=== PATIENT | female | born 1965 | race Caucasian/White ===

== ENCOUNTER 2018-11-03 00:59 | Outpatient (CLI) | payer OTHER, MEDICARE, SELFPAY ==
--- NOTE | 2018-11-03 15:50 | DI.MAMMO_ITS ---
SYMPTOM/DIAGNOSIS: SCREENING Z12.39 BILATERAL SCREENING MAMMOGRAPHY: Mammograms were interpreted according to the usual protocol including computer analysis with CAD system, tomosynthesis and C view imaging. Comparison is made with 2012 and 2015. The breasts are composed of heterogeneously dense fibroglandular tissue, breast density category C. There has been interval decrease in size of the previously noted circumscribed nodules in both breasts. A biopsy marker clip is seen in the inferior right breast. No suspicious masses or suspicious microcalcifications are seen. IMPRESSION: Category 2, negative mammogram with benign findings. Yearly screening mammography is recommended. Breast density category C. MQSA ASSESSMENT OF FINDINGS: Negative with benign findings. Category 2. Patient will receive a letter notifying them of these results. Bi-RADS category C. The breasts are heterogeneously dense, which may obscure small masses.
== END 2018-11-03 01:19 ==
PROVIDERS: PCP Nurse Practitioner Primary Care; Visit Provider Nurse Practitioner Primary Care
DX: Z12.31 Encounter for screening mammogram for malignant neoplasm of breast (principal)
CPT/HCPCS: 77063; 77067

== ENCOUNTER 2021-04-17 03:09 | Emergency (ER) | payer MEDICARE, OTHER, SELFPAY ==
[2021-04-17 03:14] VITALS: BP 130/75; PULSE 75; RESP 18; TEMP 36.5; O2SAT 96
--- NOTE | 2021-04-17 03:15 | DI.RAD_ITS ---
Exam(s) XR WRIST RT COMPLETE EXAM: XR WRIST RT COMPLETE CLINICAL HISTORY: fall, pain in distal ulna and wrist, and 4/5th mcp. TECHNIQUE: 2D digital imaging was performed. COMPARISON: No exams were available for comparison FINDINGS: No evidence of fracture or dislocation nor significant ulnar variance. On the lateral view there is a bony excrescence seen dorsally but does not appear separate from paren t bone to suggest an obvious triquetrum fracture. Correlation with site of tenderness is recommended . IMPRESSION: DATA REPOSITORY: RADIATION DOSE DELIVERED:
--- NOTE | 2021-04-17 03:15 | DI.RAD_ITS ---
Exam(s) XR ANKLE LT COMPLETE EXAM: XR ANKLE LT COMPLETE CLINICAL HISTORY: fall, tenderness over medial ankle/dist. tibia. TECHNIQUE: 2D digital imaging was performed. COMPARISON: No exams were available for comparison FINDINGS: There is no evidence of acute fracture nor widening of the mortise. Talar dome unremarkable. No osseous tarsal coalition IMPRESSION: No fracture evident DATA REPOSITORY: RADIATION DOSE DELIVERED:
--- NOTE | 2021-04-17 03:15 | DI.RAD_ITS ---
Exam(s) XR ELBOW RT COMPLETE EXAM: XR ELBOW RT COMPLETE CLINICAL HISTORY: fall, pain in lateral elbow and olecranon. TECHNIQUE: 2D digital imaging was performed. COMPARISON: No exams were available for comparison FINDINGS: No evidence of fracture nor joint effusion. No swelling of the olecranon bursa. Radial head unremar kable. IMPRESSION: No fracture. DATA REPOSITORY: RADIATION DOSE DELIVERED:
[2021-04-17] MEDS: Acetaminophen 500 MG TAB 1000 MG PO (03:25)
[2021-04-17] MEDS: Ibuprofen 800 MG TAB PO (03:25)
--- NOTE | 2021-04-17 03:30 | W.ED.GENAD ---
Discharge Plan Disposition Patient Disposition: HOME Condition: Good Discharge Details Clinical Impression: Fall, Right wrist sprain, Left ankle sprain Primary Care Provider: Eulalia Beckwith ED Provider: Saúl Kendall Home Meds and New Rx's Prescriptions: Continued multivitamin [Daily Vitamin] 1 EACH tablet 1 ea PO DAILY 0RF (DME) nebulizer and compressor [Comp-Air Elite Comp Neb System] 1 EACH device 1 ea Miscellaneous DAILY Qty: 1 0RF Rx Instructions: PLEASE DISPENSE NEBULIZER MACHINE WITH ASSOCIATED COMPONENTS. BRAND OF MACHINE IS NOT IMPORTANT. pantoprazole [Protonix] 40 MG tablet,delayed release (DR/EC) 40 mg PO DAILY Qty: 90 1RF Rx Instructions: DX: HEARTBURN levalbuterol tartrate [Xopenex HFA] 15 GM HFA aerosol inhaler 2 inhaler Inhalation Q4H PRN Qty: 1 3RF Rx Instructions: DX: BRONCHOSPASM calcium phos,dibas-vitamin D3 77-400 mg-unit Tablet 2 tab PO DAILY 0RF calcium phos,dibas-vitamin D3 77-400 mg-unit Tablet 2 tab PO QHS 0RF atorvastatin [Lipitor] 20 MG tablet 20 mg PO DAILY 0RF venlafaxine 75 MG tablet 20 mg PO DAILY 0RF cyanocobalamin (vitamin B-12) 1,000 MCG tablet 1,000 mcg PO DAILY 0RF gabapentin 100 MG capsule 400 mg PO DAILY 0RF diazepam [Valium] 5 MG tablet 5 mg PO Q8H PRN PRNQty: 14 0RF Discharge Instructions Instructions: Ankle Sprain (ED), Wrist Sprain (ED) Additional Instructions: At this time the radiologist sees no evidence of fracture for your wrist ankle or elbow. I suspect you have notably sprained these. Please use the splint and boot to help with the pain. Please ice the areas frequently. You can take Tylenol and Motrin as needed for pain. Maximum dose and frequency of Tylenol is 1000 mg every 6 hours and maximum dose and frequency for Motrin is 800 mg every 6 hours. Please bear in mind that these can cause notable stomach irritation and bleed, so take them on a full stomach, and do not take the maximum dose for more than 2 or 3 days. If you have persistent pain in spite of the splinting and Tylenol and Motrin after 1 to 2 weeks you may require repeat imaging for reassessment. If you notice any worsening of your symptoms, or any new symptoms such as vomiting, diarrhea, fever, chills, shortness of breath, chest pain, numbness, weakness, or fainting , please return immediately to the emergency department for reevaluation. Please follow up with your primary care provider as soon as possible for reassessment and reevaluation. As always, it was a pleasure participating in your medical care today. Referrals: Eulalia Beckwith [Primary Care Provider] - Medical Decision Making This is a 56-year-old female with a past medical history of high cholesterol, GERD, previous lung cancer with subsequent chemotherapy, previous lobectomy, who presents today for evaluation of fall and joint pain. Patient states that at 8:30 PM which was 7 hours prior to arrival, she was out at the barn when she slipped while carrying a bucket. Her right upper extremity landed on the pocket and developed a notable hematoma over the elbow and some pain in the right wrist. She also has some mild pain in her left ankle. She went home, and tried to go to sleep, but throughout the night the pain notably worsened, escalating to the point where she is no longer able to bear weight on her left ankle without moderate pain, and she has continued worsening pain in her right wrist and right elbow. Pain is made worse with movement. She has not taken any Tylenol or Motrin. She denies any new numbness tingling or weakness otherwise. She did not strike her head. She denies any pain in any other component of her body after the fall. No other complaints at this time. No other modifying factors. Exam demonstrates tenderness over the distal ulna of the right upper extremity as well as tenderness over the olecranon/elbow. Also notable tenderness over the medial aspect of the left ankle. We will get radiographs, evaluate for fracture, give Tylenol Motrin, monitor closely and reassess. 5 AM X-ray results have returned, no evidence of acute fracture or abnormality per radiology. On reassessment patient is feeling better after Tylenol and Motrin. I do feel she has notably sprained the wrist and ankle. We will give the walking boot and universal wrist splint. Recommend Tylenol and Motrin on an outpatient basis for pain and inflammation control as well as regular icing. Discussed red flags for which to return. Patient stable for discharge. I have extensively reviewed the treatment plan and discharge instructions with the patient. I have addressed all patient concerns at this time. The patient was made aware of what symptoms to monitor for that would warrant a return to the emergency department. Discussed the plan with the patient, they demonstrate verbal understanding and agreement with our assessment and plan at this time. The documentation in this chart was dictated using [employer] dictation software. Please excuse any dictation errors. FINDINGS: Bones/joints: No evidence of acute fracture. Soft tissues: Mild soft tissue swelling. IMPRESSION: No evidence of acute fracture. Thank you for allowing us to participate in the care of your patient. Dictated and Authenticated by: Shasta Padilla MD 04/17/2021 4:28 AM Eastern Time ([place] & [place]) FINDINGS: Bones/joints: Normal. Soft tissues: Normal. IMPRESSION: No acute findings. Thank you for allowing us to participate in the care of your patient. Dictated and Authenticated by: Shasta Padilla MD 04/17/2021 4:29 AM Eastern Time ([place] & [place]) COMPARISON: CR XR WRIST RT COMPLETE 04/17/2021 3:57 AM FINDINGS: Bones/joints: No evidence of acute fracture. Soft tissues: Mild soft tissue swelling. IMPRESSION: No evidence of acute fracture. Thank you for allowing us to participate in the care of your patient. Dictated and Authenticated by: Shasta Padilla MD 04/17/2021 4:29 AM Eastern Time ([place] & [place]) HPI General Date/Time Provider Initiated Documentation: 04/17/21 03:13. HPI Narrative: This is a 56-year-old female with a past medical history of high cholesterol, GERD, previous lung cancer with subsequent chemotherapy, previous lobectomy, who presents today for evaluation of fall and joint pain. Patient states that at 8:30 PM which was 7 hours prior to arrival, she was out at the barn when she slipped while carrying a bucket. Her right upper extremity landed on the pocket and developed a notable hematoma over the elbow and some pain in the right wrist. She also has some mild pain in her left ankle. She went home, and tried to go to sleep, but throughout the night the pain notably worsened, escalating to the point where she is no longer able to bear weight on her left ankle without moderate pain, and she has continued worsening pain in her right wrist and right elbow. Pain is made worse with movement. She has not taken any Tylenol or Motrin. She denies any new numbness tingling or weakness otherwise. She did not strike her head. She denies any pain in any other component of her body after the fall. No other complaints at this time. No other modifying factors. Related Data Home Medications Medication Instructions Recorded Confirmed multivitamin (Daily Vitamin) 1 ea PO DAILY 05/03/12 04/17/21 nebulizer and compressor (Comp-Air #1 ea 05/03/12 Elite Comp Neb System) pantoprazole 40 mg tablet,delayed 40 mg PO DAILY #90 tab 12/05/12 04/17/21 release (Protonix) levalbuterol tartrate 45 2 inhaler INHALATION Q4H PRN #1 04/06/13 mcg/actuation aerosol inhaler inhaler (Xopenex HFA) atorvastatin 20 mg tablet (Lipitor) 20 mg PO DAILY 01/29/17 04/17/21 cyanocobalamin (vitamin B-12) 1,000 mcg PO DAILY 01/29/17 02/27/17 1,000 mcg tablet gabapentin 100 mg capsule 400 mg PO DAILY 01/29/17 04/17/21 venlafaxine 75 mg tablet 20 mg PO DAILY 01/29/17 04/17/21 diazepam 5 mg tablet (Valium) 5 mg PO Q8H PRN PRN #14 tab 02/27/17 calcium phosphate,dibasic 77 2 tab PO DAILY 04/17/21 04/17/21 mg-vitamin D3 400 unit tablet calcium phosphate,dibasic 77 2 tab PO QHS 04/17/21 04/17/21 mg-vitamin D3 400 unit tablet Previous Rx's Medication Instructions Recorded diazepam 5 mg tablet (Valium) 5 mg PO Q8H PRN PRN #14 tab 02/27/17 Allergies Allergy/AdvReac Type Severity Reaction Status Date / Time aspirin Allergy Severe breathing Verified 04/17/21 03:22 difficulty zolpidem tartrate Allergy Intermediate Itchy rash Verified 04/17/21 03:22 [From Drew] & Terrible night-hunt shellfish derived Allergy SOB Verified 04/17/21 03:22 General Stated Complaint: Orthopedic ANTHONY: 4 Review of Systems All systems reviewed & are unremarkable except as noted in HPI and below PFSH All Active Problems (Updated 04/17/21 @ 04:59 by Saúl Kendall DO) Fall (Acute) Right wrist sprain (Acute) Left ankle sprain (Acute) Social History Smoking/Tobacco Use Status: Former Tobacco Use Smoking risk assessment performed?: Yes Alcohol Intake: never Drug use: Never Substance use type: does not use Do you feel safe at home: Yes Do you feel safe in your relationship?: Yes Exam Narrative Exam Narrative: 1.Const: Well-nourished, Well-developed, appearing stated age 2.Eyes: PERRL, no conjunctival injection, and symmetrical lids. 3.ENT: Atraumatic external nose and ears. Moist MM. Neck: Symmetric, trachea midline, No thyromegaly. 4.CVS: +S1/S2, No murmurs or gallops. Peripheral pulses 2+ and equal in all extremities. Brisk capillary refill in all extremities. 5.RESP: Unlabored respiratory effort. Clear to auscultation bilaterally. No wheezes rales or rhonchi 6.GI: Soft, Nontender/Nondistended, No hepatosplenomegaly. No guarding or rebound. 7.MSK: Left upper extremity unremarkable, Right upper extremity demonstrates small hematoma over the proximal forearm and elbow. Tenderness over the olecranon and proximal ulna. Patient also demonstrates tenderness over the distal ulna and fourth and fifth metacarpals/the medial carpals. No snuffbox tenderness. No distal radius tenderness. Patient demonstrates reduced angiography technologist strength secondary to pain in the right hand. Patient does demonstrate good flexion, extension, abduction and adduction of the thumb, including good opposition strength of the thumb. Screws capillary refill is present in all fingers. Good sensation in all fingers. Right lower extremity is unremarkable nontender. Left lower extremity demonstrates no tenderness over the knee or tibial plateau. No tenderness over the distal fibula. Mild to moderate tenderness over the distal tibia and medial ankle. No significant bony tenderness over the arch of the foot or toes. Brisk capillary refill is present. Good sensation in the toes. Patient is able to flex and extend the toes without pain, however she does have notable pain with flexion and extension and inversion of the right ankle. 8.Skin: Warm, Dry. No rashes or lesions. 9.Neuro: pre press operator II-XII grossly intact. Sensation grossly intact, no focal neurologic deficits. 10.Psych: (AAO) x3. Appropriate mood and affect Course Vital Signs Vital signs: Vital Signs Temperature 36.5 C 04/17/21 03:14 Pulse 75 04/17/21 03:14 Respiratory Rate 18 04/17/21 03:14 Blood Pressure 130/75 04/17/21 03:14 Pulse Oximetry 96 04/17/21 03:14 Temperature 36.5 C 04/17/21 03:14 Temperature Source Temporal Artery Scan 04/17/21 03:14 Pulse 75 04/17/21 03:14 Respiratory Rate 18 04/17/21 03:14 Respiratory Effort Non-Labored 04/17/21 03:28 Blood Pressure 130/75 04/17/21 03:14 Blood Pressure Position Sitting 04/17/21 03:14 Pulse Oximetry 96 04/17/21 03:14 Oxygen Delivery Method Room Air 04/17/21 03:14 Oxygen Flow Rate 0 04/17/21 03:14
--- NOTE | 2021-04-17 04:29 | DI.VRAD_ITS ---
PROCEDURE INFORMATION: Exam: XR Left Ankle Exam date and time: 04/17/2021 3:27 AM Age: 56 years old Clinical indication: Other: Fall TECHNIQUE: Imaging protocol: XR Left ankle. Views: 3 or more views. COMPARISON: No relevant prior studies available. FINDINGS: Bones/joints: Normal. Soft tissues: Normal. IMPRESSION: No acute findings. Dictated and Authenticated by: Shasta Padilla MD. Ordering:EULOGIO Hays MD
--- NOTE | 2021-04-17 04:29 | DI.VRAD_ITS ---
PROCEDURE INFORMATION: Exam: XR Right Wrist Exam date and time: 04/17/2021 3:27 AM Age: 56 years old Clinical indication: Other: Fall, pain in distal ulna and wrist, 4th and 5th mcp TECHNIQUE: Imaging protocol: XR Right wrist. Views: 3 or more views. COMPARISON: No relevant prior studies available. FINDINGS: Bones/joints: No evidence of acute fracture. Soft tissues: Mild soft tissue swelling. IMPRESSION: No evidence of acute fracture. Dictated and Authenticated by: Shasta Padilla MD. Ordering:EULOGIO Hays MD
--- NOTE | 2021-04-17 04:30 | DI.VRAD_ITS ---
PROCEDURE INFORMATION: Exam: XR Right Elbow Exam date and time: 04/17/2021 3:27 AM Age: 56 years old Clinical indication: Other: Fall TECHNIQUE: Imaging protocol: XR Right elbow. Views: 3 or more views. COMPARISON: CR XR WRIST RT COMPLETE 04/17/2021 3:57 AM FINDINGS: Bones/joints: No evidence of acute fracture. Soft tissues: Mild soft tissue swelling. IMPRESSION: No evidence of acute fracture. Dictated and Authenticated by: Shasta Padilla MD. Ordering:EULOGIO Hays MD
--- NOTE | 2021-04-27 13:51 | NUR.NOTE ---
Nursing Note: Accessed pt chart for records to send to [facility]. Grace Rosales
== END 2021-04-17 05:27 | disposition home or self-care (01) ==
PROVIDERS: Emergency Provider Student in an Organized Health Care Education/Training Program; PCP Nurse Practitioner Primary Care
DX: S63.591A Other specified sprain of right wrist, initial encounter (principal); S93.492A Sprain of other ligament of left ankle, initial encounter; W01.0XXA Fall on same level from slipping, tripping and stumbling without subsequent striking against object, initial encounter
CPT/HCPCS: 29125; 29515; 99283; 73080; 73110; 73610

== ENCOUNTER 2022-05-14 03:28 | Outpatient (CLI) | payer MEDICARE, OTHER, SELFPAY ==
--- NOTE | 2022-05-14 | DI.MAMMO_ITS ---
Exam(s) MAMMO SCREENING EXAM: MAMMO SCREENING CLINICAL HISTORY: SCREENING, Z12.39,[id number] TECHNIQUE: Bilateral full field digital CC and MLO mammographic images were obtained with 3D tomosyn thesis and utilizing computer aided detection (CAD). COMPARISON: Available for comparison. FINDINGS: Masses/Architectural Distortion: There are bilateral breast nodules again seen. Some of which have s hown a decrease in size. No new breast nodules are seen. No areas of architectural distortion are p resent. Microcalcifications: No suspicious pleomorphic-type are seen. Skin Thickening/Nipple Retraction: None. IMPRESSION: 1. No significant interval change with no specific features of malignancy noted. 2. Unless there is more urgent need, screening mammography is recommended, as per [place] [employer] guidelines. BI-RADS Category 2 - Benign Findings Breast Density - Category B - Scattered areas of fibroglandular density Breast density category C or D implies that the patient has dense breast tissue. Dense breast tissue is very common and is not abnormal but dense breast tissue can make it harder to find cancer on a ma mmogram. Also, dense breast tissue may increase their breast cancer risk. This information about the result of the mammogram report was provided to the patient to raise their awareness. Use this report when you speak with the patient about their risks for breast cancer, which includes their family hist ory. At that time, you may recommend for more screening tests (Ultrasound or MRI) as they might be us eful based on their risk. A negative radiographic report should not delay biopsy if a dominant or clinically suspicious mass is present. Up to ten percent of cancers are not identified on mammography. A negative report may reinforce clinical impression. Adenosis and dense breasts may obscure an underlying neoplasm. False positive reports average 6 to 10%. Patient will receive a letter notifying them of these results.
== END 2022-05-14 03:48 ==
PROVIDERS: PCP Nurse Practitioner Primary Care; Visit Provider Physician Assistant
DX: Z12.31 Encounter for screening mammogram for malignant neoplasm of breast (principal)
CPT/HCPCS: 77063; 77067

== ENCOUNTER 2022-11-04 06:04 | Day surgery (SDC) | payer MEDICARE, OTHER, SELFPAY ==
[2022-11-04 06:19] VITALS: BP 125/89; PULSE 68; RESP 19; TEMP 36.7; O2SAT 96
--- NOTE | 2022-11-04 06:28 | W.ANESPRE ---
General Info Date of Service Date Performed: 11/04/22 Height: 5 ft 7.5 in Weight: 86.7 kg Body Mass Index (BMI): 29.5 Surgical Procedure: Operation Date: 11/04/22 07:35 Proposed Procedure Side Surgeon p Gastroscopy Nathalia Vasquez MD Meds Allergies and Home Medications Allergies Allergy/AdvReac Type Severity Reaction Status Date / Time aspirin Allergy Severe breathing Verified 11/04/22 06:30 difficulty zolpidem tartrate Allergy Intermediate Itchy rash Verified 11/04/22 06:30 [From Drew] & Terrible night-hunt alendronate sodium Allergy Unknown Verified 11/04/22 06:30 shellfish derived Allergy SOB Verified 11/04/22 06:30 Home Medication Medication Instructions Recorded multivitamin (Daily Vitamin tablet) 1 ea PO DAILY 05/03/12 nebulizer and compressor (Comp-Air #1 ea 05/03/12 Elite Comp Neb System device) pantoprazole 40 mg tablet,delayed 40 mg PO DAILY #90 tabs 12/05/12 release (Protonix) levalbuterol tartrate 45 2 inhaler inhalation Q4H PRN ##1 04/06/13 mcg/actuation aerosol inhaler (Xopenex HFA) cyanocobalamin (vitamin B-12) 1,000 mcg PO DAILY 01/29/17 1,000 mcg tablet gabapentin 100 mg capsule 400 mg PO DAILY 01/29/17 venlafaxine 75 mg tablet 20 mg PO DAILY 01/29/17 calcium phosphate,dibasic 77 2 tab PO DAILY 04/17/21 mg-vitamin D3 400 unit tablet acetaminophen 325 mg capsule 650 mg PO ONCE PRN 10/14/22 atorvastatin 40 mg tablet 40 mg PO DAILY 10/14/22 clotrimazole 1 % vaginal cream 1 appful vaginal QHS 10/14/22 cyclobenzaprine 5 mg tablet 5 mg PO BID PRN 10/14/22 escitalopram oxalate 10 mg tablet 30 mg PO DAILY 10/14/22 eszopiclone 2 mg tablet 2 mg PO QHS 10/14/22 famotidine 20 mg tablet 20 mg PO BID 10/14/22 lidocaine 5 % topical patch 3 patch topical DAILY 10/14/22 oxycodone-acetaminophen 5 mg-325 1 tab PO Q4H PRN 10/14/22 mg tablet Current Visit Medications: Current Medications Generic Name Dose Route Start Last Admin Trade Name Freq PRN Reason Stop Dose Admin Ringer's Solution 1,000 mls @ 80 mls/hr 11/04/22 06:00 IV 12/03/22 23:59 INFUSION ANTONINA IV Miscellaneous Supplies 1 each 11/04/22 06:00 Iv Access IV 12/03/22 23:59 DIRECTED ANTONINA Sodium Chloride 0 ml 11/04/22 06:00 Normal Saline Flush 10 Ml Syr IV 12/03/22 23:59 PRN PRN Sodium Chloride 0 ml 11/04/22 06:00 Normal Saline 10 Ml Vial IJ 12/03/22 23:59 DIRECTED PRN Sterile Water 0 ml 11/04/22 06:00 Water,Injection,Sterile 10 Ml Vial IJ 12/03/22 23:59 DIRECTED PRN PFSH Active Problems Active Problems: Problem Status Onset Code GERD (gastroesophageal reflux disease) K21.9 PTSD (post-traumatic stress disorder) F43.10 Hearing loss 04/06/13 H91.90 Amenorrhea N91.2 Asthma J45.909 COPD (chronic obstructive pulmonary disease) J44.9 Medical History Medical History Chronic pain (11/01/12) Chronic neuropathy Depressive disorder (01/02/13) Probable PTSD post-war Headache, migraine Heartburn (11/01/12) Hyperlipidemia Insomnia (11/01/12) Chronic Lunesta RX Lumbosacral pain Non-small cell lung cancer Traumatic brain injury Surgical History Surgical History H/O esophagogastroduodenoscopy (~11/2016) No Bx done S/P bronchoscopy with biopsy (~04/2010) S/P lobectomy of lung 2011 Status post pneumonectomy (~05/2010) 2 surgeries Tobacco Smoking/Tobacco Use Status: Former Tobacco Use Alcohol Alcohol Intake: current Alcohol intake frequency: holidays/special occasions only Substance Use Substance use: Never Substance use type: does not use Vital Signs and Lab Results Vital Signs Most Recent Vital Signs in EMR: Most Recent Vital Signs Temp Pulse Resp BP Pulse Ox 36.7 C 68 19 125/89 96 11/04/22 06:19 11/04/22 06:19 11/04/22 06:19 11/04/22 06:19 11/04/22 06:19 Lab Results Blood Type / Crossmatch: No Data to Display Complete Blood Count: No Data to Display Complete Metabolic Panel: No Data to Display Liver Function Panel: No Data to Display Coagulation Panel: No Data to Display Cardiac Panel: No Data to Display Arterial Blood Gas: No Data to Display Venous Blood Gas: No Data to Display Pancreas Panel: No Data to Display Thyroid Panel: No Data to Display Infectious Disease: No Data to Display Blood Cultures: No Data to Display Toxicology Panel: No Data to Display Anesthesia Assessment and Plan Anesthesia History Personal History: No History of Anesthesia Complications Family History: No Family History of Anesthesia Complications Exercise Tolerance Exercise Tolerance: Metabolic Equivalents>4 Pertinent Negatives Pertinent Negatives: No Major Cardiovascular Symptoms or Complaints and No History of CVA/TIA Cardiac & Pulmonary Exam Cardiac Exam: Normal S1/S2 Heart Sounds Pulmonary Exam: Clear Bilateral Breath Sounds Cardiac and Pulmonary Comment:: RULobectomy per patient Implantable Cardiac Device Does patient have a Pacemaker or an ICD?: No Airway Exam Known Difficult Airway: No Mallampati Class: 3 Mouth Opening: Narrow (< 3cm) Thyromental Distance: Greater than 3 cm Neck Range of Motion: Limited ROM Neck Circumference: Normal Teeth Condition: Normal Dentition ASA Classification ASA Score: ASA 3 Emergency Case?: No NPO Status NPO Status: NPO Clears >2 hours, Solids >8 hours Anesthesia Plan Resuscitation Status: Full Code Anesthesia Technique: General Anesthesia Airway Planned: Natural Airway Monitors Used: Standard Monitors
[2022-11-04 06:29] VITALS: BMI 29.5
--- NOTE | 2022-11-04 06:49 | ENDO_ITS ---
Date of service: 11/04/22 Time of Service: 07:42 Endoscopy Report DATE OF PROCEDURE: 11/04/22 PRE-OP DIAGNOSIS: reflux POST-OP DIAGNOSIS: same (mild gastritis and esophagitis) PROCEDURE: EGD with biopsies SURGEON: Nathalia Vasquez ANESTHESIA TYPE: General:No Airway COMPLICATIONS: None DISPOSITION: same day INDICATIONS: Ms. Martin is a pleasant 57-year-old female who comes in with a years worth of worsening reflux and heartburn symptoms.? Currently she is on pantoprazole 40 mg twice a day and famotidine 20 mg twice a day.? This is for the most part controlling her symptoms.? She can still sometimes wake up in the morning with acid taste in the back of her throat.? Sometimes she feels a lot of burning in her epigastric area as well as is in the chest.? She did have an upper endoscopy back in 2017 which was normal.? No biopsies were done at that time.? I discussed the pathophysiology of reflux with the patient as well as the upper endoscopy.? We reviewed the procedure in detail as well as the possible complications.? After our discussion the patient had a good understanding of the procedure and its possible complications.? Risks, benefits and complications have been reviewed. Complications include but are not limited to bleeding, pain, perforation, sore throat, aspiration, and adverse reaction to the medications.? Questions were entertained and answered to their satisfaction and they wished to proceed. No guarantees were given or implied. FINDINGS: Mild inflammation of the stomach and distal esophagus NO Hiatal Hernia or ulcers PROCEDURE DESCRIPTION: After informed consent was obtained the patient was take to the procedure room and placed in a supine position. Monitors were applied and a time out was done. The patients name, date of , procedure type, allergies to medications and metal in their body was reviewed. A bite block was placed and the patient was sedated. Once sedated and comfortable the gastroscope was advanced through the oropharynx which was grossly normal into the esophagus. The proximal and mid- esophagus were normal. In the distal esophagus there was mild inflammation noted. The scope was advanced into the stomach and through the pylorus into the 3rd portion of the duodenum. The duodenum was noted to be normal. The scope was retracted back into the stomach and biopsies were done to rule out H. pylori. There was mild inflammation. There were no ulcers. The scope was retroflexed. The cardia and fundus were noted to be normal. There was no hiatal hernia noted. The scope was retracted back into the esophagus and biopsies were done of the GE junction to rule out Sun's. The Z line was regular. The GE junction was at 38 cm. The scope was removed and the patient was woken up and taken back to [facility] in stable condition. Follow up: 2-3 weeks. I will order an US of her Gallbladder. Findings oon her EGD do not correlate with the severity of her symptoms. No medications changes at this time.
--- NOTE | 2022-11-04 06:52 | PGE_ITS ---
Date of Service Date of service: 11/04/22 Time of Service: 07:21 Assessment and Plan Assessment and plan (1) GERD (gastroesophageal reflux disease): Status: Chronic Assessment and plan: Ms. Martin is a pleasant 57-year-old female who comes in with a years worth of worsening reflux and heartburn symptoms.? Currently she is on pantoprazole 40 mg twice a day and famotidine 20 mg twice a day.? This is for the most part controlling her symptoms.? She can still sometimes wake up in the morning with acid taste in the back of her throat.? Sometimes she feels a lot of burning in her epigastric area as well as is in the chest.? She did have an upper endoscopy back in 2017 which was normal.? No biopsies were done at that time.? I discussed the pathophysiology of reflux with the patient as well as the upper endoscopy.? We reviewed the procedure in detail as well as the possible complications.? After our discussion the patient had a good understanding of the procedure and its possible complications.? Risks, benefits and complications have been reviewed. Complications include but are not limited to bleeding, pain, perforation, sore throat, aspiration, and adverse reaction to the medications.? Questions were entertained and answered to their satisfaction and they wished to proceed. No guarantees were given or implied. I did discuss balloon dilatation today in case that she has some narrowing. We reviewed the possible complications after baloon dilatatioin as well as the fact that most patients will need another dilatation 2-3 months after the first one. proceed with EGD with biopsies Subjective Subjective Interval history since last seen: I am seeing in in same-day surgery today. I saw her in the office because of worsening heartburn and GERD type symptoms. She has not had any new symptoms since I saw her in the office. She tells me that she had a pretty bad day yesterday with reflux. She continues on her PPI and H2 luz without much improvement in her symptoms. She has symptoms with foods as well as liquids. She has not been able to figure out any particular food that makes things worse. We went over the procedure again as well as the risks and benefits and complications. She does not have any more questions today and wishes to proceed . Exam Const General: comfortable and no acute distress Nutritional Appearance: overweight Orientation: alert and oriented x3 [facility] Head: normocephalic and atraumatic Resp Effort & Inspection: normal respiratory effort Auscultation: clear to auscultation bilaterally Cardio Rate: regular rate Rhythm: regular rhythm Objective Last Vital Signs Temp 98.1 F 11/04/22 06:19 Pulse 68 11/04/22 06:19 Resp 19 11/04/22 06:19 BP 125/89 11/04/22 06:19 Pulse Ox 96 11/04/22 06:19 Time Spent with Patient Time Spent with Patient: <25 minutes Time was spent: counseling the patient
--- NOTE | 2022-11-04 06:54 | W.PM.DSUDISC ---
Date of service: 11/04/22 Time of Service: 08:10 Discharge Plan Disposition Patient Disposition: Home Condition: Stable Discharge Details Reason For Visit: GERD Attending Provider: Nathalia Vasquez Primary Care Provider: Savanah Harrison Home Meds and New Rx's Prescriptions: Continued multivitamin [Daily Vitamin] 1 EACH tablet 1 ea PO DAILY (DME) nebulizer and compressor [Comp-Air Elite Comp Neb System] 1 EACH device 1 ea Miscellaneous DAILY Qty: 1 Rx Instructions: PLEASE DISPENSE NEBULIZER MACHINE WITH ASSOCIATED COMPONENTS. BRAND OF MACHINE IS NOT IMPORTANT. pantoprazole [Protonix] 40 MG tablet,delayed release (DR/EC) 40 mg PO DAILY Qty: 90 Rx Instructions: DX: HEARTBURN levalbuterol tartrate [Xopenex HFA] 15 GM HFA aerosol inhaler 2 inhaler Inhalation Q4H PRN Qty: 1 Rx Instructions: DX: BRONCHOSPASM acetaminophen 325 mg capsule 650 mg PO ONCE PRN atorvastatin 40 mg tablet 40 mg PO DAILY clotrimazole 1 % cream 1 appful vaginal QHS cyclobenzaprine 5 mg tablet 5 mg PO BID PRN escitalopram oxalate [Lexapro] 10 mg tablet 30 mg PO DAILY eszopiclone [Lunesta] 2 mg tablet 2 mg PO QHS famotidine 20 mg tablet 20 mg PO BID oxycodone-acetaminophen 5-325 mg tablet 1 tab PO Q4H PRN lidocaine 5 % adhesive patch,medicated 3 patch topical DAILY Rx Instructions: leave on most painful area for up to 12 hrs calcium phos,dibas-vitamin D3 77-400 mg-unit Tablet 2 tab PO DAILY venlafaxine 75 MG tablet 20 mg PO DAILY cyanocobalamin (vitamin B-12) 1,000 MCG tablet 1,000 mcg PO DAILY gabapentin 100 MG capsule 400 mg PO DAILY Discharge Instructions Additional Instructions: Findings: mild inflammation of the stomach and esophagus. This doesnt explain your symptoms Medications: Continue on your medications Other: I will order an US of your Liver and Gallbladder Follow up: after your US (you have an appointment on 11/20/22. If your US has not been done please reschedule the appointment) Please call if you develop: fevers >101.5 Nausea or Vomiting Abdominal pain that is not transient Rectal bleeding that is more then a tbsp A hard abdomen and inability to pass gas DAY SURGERY UNIT POST ENDOSCOPY INSTRUCTIONS Instructions for everyone who is given Anesthesia: For your safety, please do the following for the next 24 Hours: a. Do not drive or operate dangerous equipment b. Do not drink alcohol beverages or use any recreational drugs for the first 24 hours or while taking pain medications. The medications in your body may have a reaction that can be dangerous. c. Do not make any important decisions or sign any important papers 1. Generally there are no restrictions on your activity after a day or so has gone by, but you may feel a bit fatigued for a few days. 2. After you arrive home you may have a light meal and return to a normal diet as you can tolerate it without feeling sick to your stomach. 3. After surgery, you may feel pain or discomfort. This should be only transient, but if it persists please contact your doctor. 4. If there are any questions regarding the findings of your procedure, please feel free to contact your doctor. 6. If you are unable to contact your doctor with a problem, contact the hospital at [phone]. 7. Continue all your regular medications unless directed otherwise. I understand the above instructions and have no questions. Signature of Patient or Responsible Adult Escort Date/Time Name of Responsible Adult Escort Signature of Nurse Date/Time Stand Alone Forms: Anesthesia Discharge Dory Mosqueda (JEANNA) Activity:: Activity as Tolerated Diet:: As Tolerated Discharge Orders Discharge Orders: Discharge Order (Routine); Ordered 11/04/22 Ordered By: Nathalia Vasquez DS: Diagnosis Discharge Diagnosis (1) GERD (gastroesophageal reflux disease): Status: Chronic Asessment and Plan: Patient is seen and examined after their endoscopy. Patient has minimal sore throat. They have been able to tolerate liquids. They do not have any Nausea or Vomiting. They are not having any chest pain or shortness of breath. They have been able to pass gas and are not having any abdominal pain or distention. they have not vomited any blood. The vital signs have been stable-see nursing notes. We discussed findings on their endoscopy We reviewed the importance of lifestyle modifications- see diet recommendations We reviewed any new medications that the patient may be prescribed- see medicine reconciliation. Patient will either be sent a letter with the biopsy results or follow up in the office- see discharge instructions Patient was given explicit instructions for emergency follow up post endoscopy- see discharge instructions Patient verbalized understanding and was discharged in stable and satisfactory condition. See nursing notes.
[2022-11-04] MEDS: Lactated Ringers 1,000 ML 80 ML IV (07:03)
--- NOTE | 2022-11-04 07:33 | STOM_PTH ---
PATIENT: Alis Martin LOC: [facility] U#:[id number] AGE/SX: 57/F ROOM: RE11/04/[address]: Nathalia Vasquez MD : [id number] BED: DIS: 11/04/2022 SPEC #: [id number] RECD: 11/04/22 12:15 STATUS: [facility] #: [id number] DRISS: 11/04/22 07:[address]: Nathalia Vasquez DEPT: Surgical Specimen RECD BY: Trice Laws ENTERED: 11/04/22 12:17 SP TYPE: STOMACH OTHR DR: Savanah Harrison Tissues: 1 - STOMACH BIOPSY 2 - STOMACH BIOPSY 3 - ESOPHAGUS BIOPSY Procedures: GROSS AND MICRO LEVEL 4 Comments: [id number]
[2022-11-04 07:46] VITALS: BP 98/70; PULSE 73; RESP 16; TEMP 36.2; O2SAT 95
--- NOTE | 2022-11-04 08:12 | W.ANESPOSTOP ---
Postoperative Evaluation Date, Time and Location Date Performed: 11/04/22 Time Performed: 08:12 Patient Location: Day Surgery Unit Vital Signs Most Recent Imported Vital Signs: Most Recent Vital Signs Temp Pulse Resp BP Pulse Ox 36.2 C L 73 16 98/70 L 95 11/04/22 07:46 11/04/22 07:46 11/04/22 07:46 11/04/22 07:46 11/04/22 07:46 Pain Score Most Recent Pain Score: Most Recent Pain Score Pain Level 0 11/04/22 07:46 Assessment Mental Status: Awake (Alert & Oriented to Patient Baseline) Airway and Respiratory Function: Patent airway with normal (patient baseline) respiratory exam Cardiovascular Function: Hemodynamically Stable Hydration Status: Adequately Hydrated Nausea & Vomiting: No Nausea or Vomiting Pain: Pt. Denies Any Pain Peripheral Nerve Block: Patient did not receive a nerve block
[2022-11-04 08:13] VITALS: BP 105/89; PULSE 63; RESP 16; TEMP 36.3; O2SAT 97
== END 2022-11-04 08:40 | disposition home or self-care (01) ==
PROVIDERS: PCP Physician Assistant; Visit Provider Surgery
PROC: 0DJ68ZZ Inspection of Stomach, Via Natural or Artificial Opening Endoscopic (ICD-10-PCS; CPT 43235; principal; 2022-11-04 07:30)
DX: K21.9 Gastro-esophageal reflux disease without esophagitis (principal); K29.70 Gastritis, unspecified, without bleeding; K20.90 Esophagitis, unspecified without bleeding; K31.89 Other diseases of stomach and duodenum; K22.89 Other specified disease of esophagus
CPT/HCPCS: 43239; 88305

== ENCOUNTER → 2023-06-21 03:24 | Outpatient (CLI) | payer OTHER, SELFPAY ==
--- NOTE | 2023-06-21 | DI.MAMMO_ITS ---
Exam(s) MAMMO SCREENING EXAM: MAMMO SCREENING CLINICAL HISTORY: SCREENING Z12.31, [id number]. TECHNIQUE: Bilateral full field digital CC and MLO mammographic images were obtained with 3D tomosyn thesis and utilizing computer aided detection (CAD). COMPARISON: Prior mammograms were reviewed. FINDINGS: There has been no significant change in the appearance and distribution of the fibroglandular tissue. There are no new findings in the immediate vicinity of the biopsy marker clip in the right breast. There are no new spiculated masses nor malignant appearing microcalcification groups. Again noted is stability of the previously described bilateral nodules, most of which decreased in si ze from more previous mammograms and are therefore most probably cysts. There is no significant architectural distortion nor skin thickening-retraction. IMPRESSION: No radiographic evidence of malignancy. Stable benign findings. BI-RADS Category 2 - Benign Findings Breast Density - Category B - Scattered areas of fibroglandular density Breast density Category C or D implies that the patient has dense breast tissue. Dense breast tissue can make it harder to find cancer on a mammogram. Dense breast tissue is also associated with an incr eased risk of breast cancer. This information about the result of the mammogram report was provided to the patient to raise their awareness. Use this report when you speak with the patient about their risks for breast cancer, which includes their family history. At that time, you may recommend additional screening tests (Ultrasoun d or MRI) as these tests may add significant information. A negative radiographic report should not delay biopsy if a dominant or clinically suspicious mass is present. Up to ten percent of cancers are not identified on mammography. A negative report may reinforce clinical impression. Adenosis and dense breasts may obscure an underlying neoplasm. False positive reports average 6 to 10%. Patient will receive a letter notifying them of these results.
== END ==
PROVIDERS: PCP Physician Assistant; Visit Provider Physician Assistant
DX: Z12.31 Encounter for screening mammogram for malignant neoplasm of breast (principal)
CPT/HCPCS: 77063; 77067

== ENCOUNTER 2024-06-21 00:40 | Outpatient (CLI) | payer OTHER, SELFPAY ==
--- NOTE | 2024-06-21 10:21 | DI.MAMMO_ITS ---
Exam(s) MAMMO SCREENING EXAM: MAMMO SCREENING CLINICAL HISTORY: [id number] Z12.31 Encounter for screening mammogram for malig neop TECHNIQUE: Mammograms were interpreted according to the usual protocol including computer analysis w [employer] CAD system, tomosynthesis and C-view imaging. COMPARISON: 2018 through 2023 FINDINGS: The breasts are composed of scattered fibroglandular densities, Breast Density category B. No suspicious masses or suspicious microcalcifications are seen. Status stable nodule in the anterio r medial right breast. Decreased prominence of nodule in the upper central left breast. Biopsy godfrey er clip. Inferior right breast. No skin thickening or abnormal axillary lymph nodes are seen. There has been no significant change from prior exams. IMPRESSION: BI-RADS Category 2 - Benign Findings Yearly screening mammography is recommended. Breast Density - Category B, scattered fibroglandular densities. A negative radiographic report should not delay biopsy if a dominant or clinically suspicious mass is present. Up to ten percent of cancers are not identified on mammography. A negative report may reinforce clinical impression. Adenosis and dense breasts may obscure an underlying neoplasm. False positive reports average 6 to 10%. Patient will receive a letter notifying them of these results.
== END 2024-06-21 01:00 ==
LOC: DI 00:40
PROVIDERS: PCP Physician Assistant; Visit Provider Physician Assistant
DX: Z12.31 Encounter for screening mammogram for malignant neoplasm of breast (principal); R92.323 Mammographic fibroglandular density, bilateral breasts; D24.2 Benign neoplasm of left breast
CPT/HCPCS: 77063; 77067